=== PATIENT | male | born 1985 | race African-American/Black ===

== ENCOUNTER 2024-10-21 16:58 | Emergency (ER) | payer OTHER ==
[~2024-10-21] VITALS: Ht 177.8 cm; Wt 79.5 kg
[2024-10-21 19:17] VITALS: BP 106/70; PULSE 72; RESP 18; TEMP 98.1; O2SAT 100
[2024-10-21] MEDS: FLUORESCEIN SODIUM 1 MG STRIP OU ONE (19:28)
[2024-10-21] MEDS: PROPARACAINE HCL 0.5% 15 ML OPHTHALMIC SOLUTION OU ONE (19:28)
[2024-10-21] MEDS: OFLOXACIN 0.3% 5 ML OPHTHALMIC SOLUTION OU ONE (20:15)
== END 2024-10-21 20:17 ==
LOC: EMS 16:58
DX: H10.9 Unspecified conjunctivitis (principal)
CPT/HCPCS: 99283